=== PATIENT | male | born 1970 | race Caucasian/White ===

== ENCOUNTER 2018-07-10 13:48 | Emergency (ER) | payer BC ==
[~2018-07-10] VITALS: Ht 190.5 cm; Wt 96.4 kg
[2018-07-10] MEDS ORDERED: TRAMADOL HCL50 MG PO (15:42)
[2018-07-10] MEDS ORDERED: CLINDAMYCIN HC150 MG PO (15:42)
[2018-07-10 15:46] LABS: HEMATOCRIT 44.7 % (39.0-50.0); HEMOGLOBIN 16.1 g/dl (14.0-18.0); IMMATURE GRANULOCYTES 0.3 % (0.0-5.0); MEAN CELL VOLUME 85.1 fL CALC (80.0-100.0); MEAN CORPUSCULAR HGB 30.7 pG CALC (26.0-32.0); NEUT# 10.44 thou/uL (1.82-7.42); RED BLOOD COUNT 5.25 mill/uL (4.70-6.10); RED CELL DISTRI WIDTH 12.1 % (11.5-15.5)
[2018-07-10 16:03] LABS: ALBUMIN 4.5 g/dL (3.2-5.0); ALKALINE PHOSPHATASE 69 u/l (38-126); ANION GAP 14 (6-22 (CALC)); BILIRUBIN, TOTAL 0.7 mg/dL (0.0-1.4); BUN 19 mg/dL (9-20); BUN/CREATININE RATIO 19 (12-20 (CALC)); CARBON DIOXIDE 29 mmol/l (22-30); CHLORIDE 102 mmol/l (95-108); GFR > 60 ML/MIN (>=60 (CALC)); GFR FOR AFR.AMER. > 60 ML/MIN (>=60 (CALC)); POTASSIUM 4.7 mmol/l (3.5-5.1); SGOT/AST 27 u/l (17-59); SODIUM 140 mmol/l (137-146); TOTAL PROTEIN 6.9 g/dL (6.3-8.2)
[2018-07-10] MEDS ORDERED: ONDANSETRON4 MG PO (17:05)
[2018-07-10] MEDS ORDERED: TORADOL PO (17:05)
[2018-07-10 17:09] VITALS: BP 131/80
== END 2018-07-10 17:10 | disposition home or self-care (01) | DRG 392 ==
LOC: ED 13:48
PROVIDERS: Emergency Medicine
DX: R11.10 Vomiting, unspecified (principal); T40.4X5A Adverse effect of other synthetic narcotics, initial encounter; Y92.009 Unspecified place in unspecified non-institutional (private) residence as the place of occurrence of the external cause

== ENCOUNTER 2018-08-29 08:12 | Outpatient (RCR) | payer BC ==
[~2018-08-29 08:12] MED LIST: CLINDAMYCIN HC150 MG PO; ONDANSETRON4 MG PO; TORADOL PO; TRAMADOL HCL50 MG PO
== END 2018-08-29 12:00 | disposition home or self-care (01) | DRG 593 ==
LOC: OPWC 08:12
PROVIDERS: ATTEND Surgery
DX: L97.912 Non-pressure chronic ulcer of unspecified part of right lower leg with fat layer exposed (principal); L97.211 Non-pressure chronic ulcer of right calf limited to breakdown of skin; L97.312 Non-pressure chronic ulcer of right ankle with fat layer exposed; L03.115 Cellulitis of right lower limb; I87.2 Venous insufficiency (chronic) (peripheral); M79.604 Pain in right leg; A49.9 Bacterial infection, unspecified; E86.0 Dehydration; R11.10 Vomiting, unspecified
CPT/HCPCS: A6021; A6197; A6199; A6209; A6210; A6212

== ENCOUNTER 2019-09-05 | Emergency (ER) | payer BC ==
[2019-09-05] MEDS ORDERED: ULTRAM50 M1 PO (00:27)
[2019-09-05] MEDS ORDERED: CIPROFLOXACN500 MG PO ×2 (00:27)
== END 2019-09-05 01:00 | disposition home or self-care (01) | DRG 125 ==
PROC: 0HQ1XZZ Repair Face Skin, External Approach (ICD-10-PCS; principal; 2019-09-05)
DX: S01.111A Laceration without foreign body of right eyelid and periocular area, initial encounter (principal); S01.311A Laceration without foreign body of right ear, initial encounter; W01.198A Fall on same level from slipping, tripping and stumbling with subsequent striking against other object, initial encounter; Y92.009 Unspecified place in unspecified non-institutional (private) residence as the place of occurrence of the external cause

== ENCOUNTER 2019-12-19 11:13 | Emergency (ER) | payer BC ==
[~2019-12-19] VITALS: Ht 190.5 cm; Wt 80.0 kg
[~2019-12-19 11:13] MED LIST changes: +CIPROFLOXACN500 MG PO; +ULTRAM50 M1 PO
[2019-12-19 11:52] VITALS: BP 132/77
== END 2019-12-19 12:02 | disposition home or self-care (01) | DRG 914 ==
LOC: ED 11:13
DX: S61.240A Puncture wound with foreign body of right index finger without damage to nail, initial encounter (principal); W26.8XXA Contact with other sharp object(s), not elsewhere classified, initial encounter; W45.8XXA Other foreign body or object entering through skin, initial encounter

== ENCOUNTER 2020-01-04 09:41 | Emergency (ER) | payer BC ==
[~2020-01-04] VITALS: Ht 190.5 cm; Wt 96.8 kg
[2020-01-04 11:18] LABS: HEMATOCRIT 40.6 % (39.0-50.0); IMMATURE GRANULOCYTES 0.2 % (0.0-5.0); MEAN CELL VOLUME 87.1 fL CALC (80.0-100.0); MEAN CORPUSCULAR HGB 29.8 pG CALC (26.0-32.0); MEAN CORPUSCULAR HGB CONC 34.2 g/dL CAL (32.0-36.0); NEUT# 2.26 thou/uL (1.82-7.42); RED BLOOD COUNT 4.66 mill/uL (4.70-6.10); RED CELL DISTRI WIDTH 12.9 % (11.5-15.5)
[2020-01-04 11:22] LABS: HEMOGLOBIN 13.9 g/dl (14.0-18.0)
[2020-01-04 11:32] LABS: ALBUMIN 4.1 g/dL (3.2-5.0); ALKALINE PHOSPHATASE 69 u/l (38-126); ANION GAP 11 (6-22 (CALC)); BUN 15 mg/dL (9-20); BUN/CREATININE RATIO 15 (12-20 (CALC)); CARBON DIOXIDE 26 mmol/l (22-30); CHLORIDE 102 mmol/l (95-108); GFR > 60 ML/MIN (>=60 (CALC)); GFR FOR AFR.AMER. > 60 ML/MIN (>=60 (CALC)); POTASSIUM 4.3 mmol/l (3.5-5.1); SGOT/AST 40 u/l (17-59); SODIUM 135 mmol/l (137-146); TOTAL PROTEIN 6.8 g/dL (6.3-8.2)
[2020-01-04 11:42] LABS: BILIRUBIN, TOTAL 0.4 mg/dL (0.0-1.4)
[2020-01-04 11:44] LABS: MYOGLOBIN 99 ng/mL (0 - 121)
[2020-01-04 13:15] LABS: URINE BILIRUBIN - DIPSTICK NEGATIVE (NEGATIVE); URINE BLOOD DIPSTICK NEGATIVE (NEGATIVE); URINE COLOR YELLOW; URINE GLUCOSE - DIPSTICK NEGATIVE (NEGATIVE); URINE KETONE NEGATIVE (NEGATIVE); URINE LEUK ESTERASE NEGATIVE (NEGATIVE); URINE NITRITE - DIPSTICK NEGATIVE (Negative); URINE PH 5.5 (4.5-8.0); URINE PROTEIN - DIPSTICK NEGATIVE (NEG-TRACE); URINE SPECIFIC GRAVITY <=1.005; URINE UROBILINOGEN - DIPSTICK 0.2 E.U./dL (0.2)
[2020-01-04 13:45] VITALS: BP 138/87
--- NOTE | 2020-01-06 13:06 | NUR ---
Notified patient of positive Covid results. Patient states his symptoms have improved since Saturday. Patient denies SOB or difficulty breathing. Advised patient to quarantine until contacted by [facility] with further instructions. Advised patient to return to ED withdifficulty breathing or other urgent needs. Patient verbalized understanding.
== END 2020-01-04 13:45 | disposition home or self-care (01) | DRG 179 ==
LOC: ED 09:41
PROVIDERS: Emergency Medicine
DX: U07.1 COVID-19 (principal)